=== PATIENT | male | born 1940 | race Caucasian/White ===

== ENCOUNTER → 2018-03-28 09:12 | Outpatient (POV) | payer MEDICARE, SELFPAY | PROVIDERS: Visit Provider Nurse Practitioner Acute Care | DX: Z00.00 Encounter for general adult medical examination without abnormal findings (principal) ==

== ENCOUNTER → 2018-08-08 09:29 | Outpatient (POV) | payer MEDICARE, SELFPAY | PROVIDERS: Visit Provider Nurse Practitioner Acute Care | DX: Z00.00 Encounter for general adult medical examination without abnormal findings (principal) ==

== ENCOUNTER → 2020-01-23 09:31 | Outpatient (POV) | payer MEDICARE, SELFPAY | PROVIDERS: Visit Provider Dermatology | DX: Z00.00 Encounter for general adult medical examination without abnormal findings (principal) ==

== ENCOUNTER → 2020-05-27 08:25 | Outpatient (POV) | payer MEDICARE, SELFPAY | PROVIDERS: Visit Provider Nurse Practitioner Family | DX: Z00.00 Encounter for general adult medical examination without abnormal findings (principal) ==

== ENCOUNTER → 2020-10-04 10:00 | Outpatient (CLI) | payer MEDICARE, SELFPAY | PROVIDERS: Visit Provider Internal Medicine Gastroenterology | DX: Z01.812 Encounter for preprocedural laboratory examination (principal); Z20.822 Contact with and (suspected) exposure to COVID-19; Z12.11 Encounter for screening for malignant neoplasm of colon | CPT/HCPCS: U0003 ==

== ENCOUNTER 2020-10-07 06:56 | Day surgery (SDC) | payer MEDICARE, SELFPAY ==
[2020-10-01 13:32] VITALS: BMI 25.7
[2020-10-07 07:18] VITALS: BP 119/75; PULSE 64; RESP 18; TEMP 36.2; O2SAT 98
--- NOTE | 2020-10-07 07:39 | P.PN_ITS ---
[facility] Anesthesia Checklist - Patient Identification Patient Identification: Arm Band - Structural Data Admitted From: Home Planned Operative Procedure/s: Colonoscopy Consent for Planned Operative Procedure(s) Verified: Yes - NPO Status Verified Time NPO: 00:00 - Additional verifications Anesthesia Reactions: No - Airway Assessment C-Spine Mobility Assessed: Yes TMJ Mobility Assessed: Yes Dentition: Good Dentition - Neurological Assessment Level of Consciousness: Awake Hx Seizures: No Numbness or tingling in extremities: No - Anesthesia Plan Anesthesia Risk discussed: Yes Anesthesia Plan: Verified ASA Class: II Anesthesia Type: MAC [facility] History I have reviewed the patient's past medical history: Yes Medical History: Reports:: Hyperlipidemia, Hypertension Denies:: Cancer, Diabetes Mellitus Type 1, Diabetes Mellitus Type 2, Internal Pacemaker, Lung Disease, MRSA, Seizures *Have you ever received a pneumonia vaccine?: Yes *Have you received a flu vaccine this season?: No Anesthesia experience/problems:: None Other Surgeries: Yes: Hernia Repair, Other (colectomy). No: Pacemaker Amputation: No Fractures: No - *Social History Smoking Status: Never smoker Alcohol Intake: never Substance Use Type: denies use *Occupational Status:: employed Housing: house Household Members: spouse *Travel in the last 8 weeks: None Family Hx:: No significant family history
[2020-10-07 08:06] VITALS: O2SAT 97
--- NOTE | 2020-10-07 08:10 | P.PCN_ITS ---
[facility] Procedure Note Procedure Note:: Colonoscopy Procedure Report: Colonoscopy with cold snare polypectomy Endoscopist: Tacho Arnold II, MD Referring physician: Berry Deng MD Date of Procedure: October 07, 2020 Equipment: Olympus 190 variable stiffness pediatric colonoscope Sedation: MAC sedation Indication: Mr. 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 The patient underwent robotic low anterior resection (Dr. Manjeet Guidry) on January 17, 2018. He had a repeat surveillance colonoscopy in May 2018 and had 5 polyps (tubular adenomas x5) which were removed. The patient does have occasional bowel urgency. He reports no rectal bleeding, abdominal pain, weight loss or change in bowel habits. He reports no family history of colon cancer. Procedure: Prior to the procedure, a history and physical exam was performed, and patient's medications and allergies were reviewed. The risks, benefits and alternatives of the sedation and procedure were discussed with the patient. All questions were answered and informed consent was obtained. The patient was brought to the procedure room. Patient identification and proposed procedure were verified by the physician and the nurse. The patient was placed in a left lateral decubitus position and the scope was passed under direct vision. Throughout the procedure, the patient's blood pressure, pulse, and oxygen saturations were monitored continuously. The colonoscopy was accomplished without difficulty. The patient tolerated the procedure well. Findings: On digital rectal examination there was normal rectal tone. There were no external hemorrhoids. The prostate was 2+, mildly firm but symmetric without nodules. The colonoscope was introduced through the anal canal to the rectum a nd advanced to the cecum. The ileocecal valve and appendiceal orifice were identified. The scope was advanced a short distance into the ileum which appeared grossly normal. The scope was then withdrawn into the colon. There were a total of 3 colon polyps (cecum x2 (2 and 4 mm) and descending x1 (5 mm)) which were all removed via cold snare polypectomy. The remaining cecum, ascending and transverse colon and mucosa were grossly normal. There were scattered diverticuli throughout the descending and remaining sigmoid colon (left colon). There was an end-to-side anastomosis at the rectosigmoid junction. There was no evidence of any anastomotic stricturing with the anastomosis being very widely patent with white anastomotic circumferential line. The rectum itself was normal. Upon retroflexion within the rectum there were grade 1-2 internal hemorrhoids. The preparation was excellent throughout with [place] Preparation Score of 9. The cecal time was 12 minutes. Impression: 1. Diminutive colonic polyps x3 2. Left-sided diverticulosis 3. Prior LAR (low anterior resection) with end to side anastomosis 4. Grade 1-2 internal hemorrhoids Plan: I would encourage bulk fiber supplementation (FiberCon 2 tablets p.o. every morning or twice daily) on a long-term daily maintenance basis. Based upon the patient's personal history of malignant polyp and multiple adenomatous polyps, I would recommend surveillance colonoscopy again in 3 years. This will certainly be based upon good health and willingness to continue surveillance.
[2020-10-07 08:30] VITALS: BP 81/43; PULSE 77; RESP 12; TEMP 36.4; O2SAT 94
[2020-10-07 08:40] VITALS: BP 99/56; PULSE 75; RESP 12; O2SAT 95
[2020-10-07 08:50] VITALS: BP 144/72; PULSE 70; RESP 16; O2SAT 97
[2020-10-07 09:00] VITALS: BP 148/79; PULSE 69; RESP 16; TEMP 36.4; O2SAT 100
== END 2020-10-07 09:06 | disposition home or self-care (01) ==
LOC: OUTP 06:58
PROVIDERS: PCP Family Medicine; Visit Provider Internal Medicine Gastroenterology
PROC: 0DJD8ZZ Inspection of Lower Intestinal Tract, Via Natural or Artificial Opening Endoscopic (ICD-10-PCS; CPT 45378; principal; 2020-10-07 08:00)
DX: Z85.030 Personal history of malignant carcinoid tumor of large intestine (principal); Z90.49 Acquired absence of other specified parts of digestive tract; K63.5 Polyp of colon; K57.30 Diverticulosis of large intestine without perforation or abscess without bleeding; K64.0 First degree hemorrhoids; Z86.010 Personal history of colon polyps; E78.5 Hyperlipidemia, unspecified; I10 Essential (primary) hypertension; Z88.2 Allergy status to sulfonamides; Z79.82 Long term (current) use of aspirin; Z79.899 Other long term (current) drug therapy
CPT/HCPCS: 45385; 88305

== ENCOUNTER → 2021-05-02 09:02 | Outpatient (CLI) | payer MEDICARE, SELFPAY ==
--- NOTE | 2021-05-02 | CA_ITS ---
APPROVED REPORT Exam: Exercise Treadmill Technologist: Yesenia Lewis, Ht: 5 ft 5 in Wt: 158 lbs BSA: 1.79 m2 HR: 81 bpm BP: 166/81 mmHg Medical History Medications: Lisinopril,,,,, Aspirin,,,,, Hydrochlorothiazide,,,,, Probiotic,,,,, Metamucil,,,,, Multivitamin,,,,, Stress Test Details Test: Dilshad HR Resting HR: 85 bpm Max Heart Rate (APMHR): 140.699518 bpm Max HR Achieved: 129 bpm Target HR (85% APMHR): 119.623886 bpm % of APMHR: 92.14 Recovery HR: 114 bpm BP Resting BP: 154/82 mmHg Max BP: 192/91 mmHg Recovery BP: 192.0/91.0 mmHg ECG Clinical Exercise duration: 04:55 min Highest Stage Achieved: Exercise capacity: 7.0 METs Stress ECG Conclusion During Dilshad protocol pt walked for a total of 4:55. No CP noted. No SOA noted. Leg fatigue is noted. Pt did not take BP meds this morning. Test Summary RECOVERY 03:00 0.0 0.0 91 . 172/ 86 . . REST . . . . . . . Standing REST 07:21 0.0 0.0 85 . 154/ 82 . . Stage 1 01:00 10.0 1.7 98 . . . . Stage 1 02:00 10.0 1.7 110 . . . . Stage 1 03:00 10.0 1.7 112 . 172/ 90 . . Stage 2 01:00 12.0 2.5 122 . . . . Stage 2 01:55 12.0 2.5 129 . . . Stop exercise at 04:55 RECOVERY 01:00 0.0 0.0 106 . . . . RECOVERY 02:00 0.0 0.0 92 . 192/ 91 . . RECOVERY 03:00 0.0 0.0 91 . 172/ 86 . . RECOVERY 04:00 0.0 0.0 88 . 171/ 88 . . RECOVERY 04:38 0.0 0.0 91 . 158/ 84 . . Electronically signed by : Berry Farley MD 05/02/2021 20:33:11
== END ==
PROVIDERS: PCP Family Medicine; Visit Provider Family Medicine
DX: R06.00 Dyspnea, unspecified (principal); I10 Essential (primary) hypertension; E78.00 Pure hypercholesterolemia, unspecified; Z82.49 Family history of ischemic heart disease and other diseases of the circulatory system
CPT/HCPCS: 93017

== ENCOUNTER → 2022-02-17 14:46 | Outpatient (POV) | payer MEDICARE, SELFPAY | PROVIDERS: Visit Provider Dermatology | DX: Z00.00 Encounter for general adult medical examination without abnormal findings (principal) ==

== ENCOUNTER → 2022-06-18 11:45 | Outpatient (CLI) | payer MEDICARE, SELFPAY ==
[2022-06-18 14:48] LABS: Basophils # 0.1 K/mm3 (0-0.2); Eosinophils # 0.1 K/mm3 (0.0-0.4); Eosinophils % 0.9 % (0.1-12.0); Hematocrit 49.9 % (42.0-52.0); Hemoglobin 16.6 g/dL (14.1-18.0); Lymphocytes # 1.4 K/mm3 (0.7-4.5); Lymphocytes % 23.4 % (10-50); Mean Corpuscular HGB Conc 33.3 g/dL (31.8-35.4); Mean Corpuscular Hemoglobin 30.5 pg (27.0-31.2); Mean Corpuscular Volume 91.7 fl (80-94); Monocytes # 0.4 K/mm3 (0.1-1.0); Monocytes % 6.6 % (1.7-9.3); Neutrophils # 4.1 K/mm3 (1.8-7.8); Neutrophils % 68.1 % (37.0-80.0); Platelet Count 235 K/mm3 (142-424); Red Blood Count 5.44 M/mm3 (4.60-6.20); White Blood Count 6.1 K/mm3 (4.8-10.8)
[2022-06-18 15:03] LABS: Alanine Aminotransferase 25 U/L (12-78); Albumin Level 4.4 g/dl (3.5-5.0); Albumin/Globulin Ratio 1.6 (1.1-1.8); Alkaline Phosphatase 67 U/L (38-126); Anion Gap 12.4 mEq/L (5-15); Aspartate Amino Transferase 31 U/L (17-59); Blood Urea Nitrogen 22 mg/dl (9-20); Calcium 9.5 mg/dl (8.4-10.2); Carbon Dioxide 31 mmol/L (22.0-30.0); Chloride 102 mmol/L (98-107); Cholesterol 253 mg/dl (140-200); Estimated Glomerular Filt Rate 72 ml/min (>60); GFR (African American) 87 ML/MIN (>60); Globulin 2.7 g/dL (1.3-3.2); Glucose 99 mg/dl (74-100); HDL Cholesterol 36 mg/dl (40-60); Potassium 4.4 mmoL/L (3.5-5.1); Sodium 141 mmol/L (136-145); Total Protein,Serum 7.1 g/dl (6.3-8.2); Triglycerides 150 mg/dl (30-150); VLDL Cholesterol 30 mg/dL (0-40)
[2022-06-18 15:14] LABS: Direct LDL Cholesterol 185.04 mg/dL (100-129)
[2022-06-18 15:35] LABS: Thyroid Stimulating Hormone 1.94 uIU/mL (0.465-4.68)
== END ==
PROVIDERS: PCP Family Medicine; Visit Provider Family Medicine
DX: Z12.5 Encounter for screening for malignant neoplasm of prostate (principal); K59.00 Constipation, unspecified; N39.9 Disorder of urinary system, unspecified; R53.83 Other fatigue; E03.9 Hypothyroidism, unspecified
CPT/HCPCS: 80053; 80061; 84443; 85025; G0103

== ENCOUNTER 2022-12-03 18:17 | Emergency (ER) | payer MEDICARE, SELFPAY ==
[2022-12-03] VITALS (9 sets, daily range): BP systolic 134–154; BP diastolic 67–94; PULSE 68–116; RESP 16–20; TEMP 36.4; O2SAT 95–97; BMI 25.7
--- NOTE | 2022-12-03 18:20 | PC.NURSE ---
Bladder scanned patient; 450mL
--- NOTE | 2022-12-03 19:21 | HMH.EDGENADL ---
Discharge Plan Disposition Patient Disposition: Home, Self-Care Prescriptions Prescriptions: New tamsulosin [Flomax] 0.4 mg capsule 0.4 mg PO DAILY 14 Days Qty: 14 0RF No Action ergocalciferol (vitamin D2) 50 mcg (2,000 unit) capsule 50 mcg PO DAILY ascorbic acid (vitamin C) 500 mg capsule PO hydrochlorothiazide 50 mg tablet 50 mg PO DAILY Qty: 90 3RF cholestyramine (with sugar) [Questran] 4 gram powder in packet 4 g PO DAILY Qty: 60 3RF Rx Instructions: administer w/meal; avoid other meds within 1hr before or 4-6hr after dose tamsulosin [Flomax] 0.4 mg capsule 0.4 mg PO DAILY Qty: 90 3RF amlodipine [Norvasc] 10 mg tablet 10 mg PO DAILY Qty: 90 3RF azithromycin 500 mg tablet 500 mg PO DAILY 3 Days Qty: 3 0RF meclizine 25 mg tablet 25 mg PO TID PRN (Reason: dizziness) Qty: 45 3RF atorvastatin [Lipitor] 20 mg tablet 20 mg PO DAILY Qty: 90 3RF lisinopril 40 mg tablet 40 mg PO DAILY Qty: 90 3RF multivitamin 1 EACH capsule 1 each PO DAILY Referrals Follow up/Referrals: Peyman Oliveira MD [Primary Care Provider] - See instructions Activity Restrictions/Add. Instructions Additional Instructions/Restrictions: Please follow-up with your urologist or your primary care doctor in 1 week for a spontaneous voiding trial. Return with any other concerns. Clinical Impressions Clinical Impression: Acute urinary retention, Prostate cancer Instructions Patient Instructions: DI for Urinary Tract Infection (UTI), DI for Urinary Tract Infection in Children Discharge ED Provider: Angie Gatica General Adult HPI General Chief complaint: Urogenital-Male Stated complaint: trouble urinating Time Seen by Provider: 12/03/22 19:07 Mode of Arrival: Ambulatory Source of Information: Patient Limitations: No Limitations Description of Symptoms (Recalled from ER Triage Doc. by RN): Presents to ED with complaints of inability to urinate that started at 1300 after treatment at . Hx of prostate cancer. Denies hx of urniary retention. States he has pressure in his lower abd. History of Present Illness HPI narrative: Patient is an 82-year-old male presenting with urinary retention. He has a known history of recently diagnosed prostate cancer he is being evaluated and worked up in the [facility] had treatment options discussed on November 03 that was seen in consultation with radiation oncology on November 20 and decided to pursue radiation therapy for his prostate cancer he additionally had gold fiducial placement on and had a PET scan that did not demonstrate any solid organ evidence of metastatic disease. However there was an abnormality in the inferior pole of his kidney for which she was getting a CT scan specifically for renal mass evaluation today at [facility] and had contrast that was placed. Since this procedure he had significant suprapubic pressure and has been unable to urinate. Related Data Home Medications Medication Instructions Recorded Confirmed multivitamin 1 each PO DAILY Supplement 12/20/17 08/14/22 ascorbic acid (vitamin C) 500 mg mg PO 10/13/21 08/14/22 capsule ergocalciferol (vitamin D2) 50 mcg 50 mcg PO DAILY 10/13/21 08/14/22 (2,000 unit) capsule Previous Rx's Medication Instructions Recorded hydrochlorothiazide 50 mg tablet 50 mg PO DAILY #90 tabs 10/13/21 cholestyramine (with sugar) 4 gram 4 g PO DAILY #60 ea 02/13/22 powder for susp in a packet (Questran) atorvastatin 20 mg tablet (Lipitor) 20 mg PO DAILY #90 tabs 06/18/22 tamsulosin 0.4 mg capsule (Flomax) 0.4 mg PO DAILY #90 caps 06/18/22 amlodipine 10 mg tablet (Norvasc) 10 mg PO DAILY #90 tabs 08/14/22 azithromycin 500 mg tablet 500 mg PO DAILY 3 days #3 tabs 08/14/22 meclizine 25 mg tablet 25 mg PO TID PRN dizziness #45 tabs 08/14/22 lisinopril 40 mg tablet 40 mg PO DAILY blood pressure #90 11/16/22 tabs tamsulosin 0.4 mg capsule (Flomax) 0.4 mg PO
[2022-12-03 19:34] LABS: Microscopic, Urine URINE MICROSCOPIC (MICROSCOPIC)
[2022-12-03 19:37] LABS: Appearance,Urine CLEAR (Clear); Bilirubin,Urine Negative (Negative); Blood, Urine TRACE-I (Negative); Color,Urine YELLOW (Yellow); Glucose,Urine (UA) Negative (Negative); Ketones,Urine Negative (Negative); Leukocyte Esterase,Urine Negative (Negative); Nitrate,Urine Negative (Negative); PH,Urine 5.5 (5.0-8.5); Protein,Urine Negative (Negative); Specific Gravity, Urine <= 1.005 (1.005-1.030); Urobilinogen,Urine 0.2 EU/dl (0.2)
[2022-12-03 19:48] LABS: RBC,Urine Occasional #/hpf (0-3); Squamous Epithelial Cell,Urine Occasional #/hpf (0-5)
[2022-12-03 19:51] LABS: Chloride 100 mmol/L (98-107)
[2022-12-03 19:52] LABS: Sodium 137 mmol/L (136-145)
[2022-12-03 19:55] LABS: Anion Gap 12.9 mEq/L (5-15); Blood Urea Nitrogen 22 mg/dl (9-20); Calcium 9.2 mg/dl (8.4-10.2); Carbon Dioxide 27 mmol/L (22.0-30.0); Creatinine Clearance Estimated 58 mL/min (50-200); Estimated Glomerular Filt Rate 72 ml/min (>60); GFR (African American) 87 ML/MIN (>60); Glucose 143 mg/dl (74-100)
[2022-12-03 19:57] LABS: Potassium 2.9 mmoL/L (3.5-5.1)
[2022-12-03 19:58] LABS: Basophils % 0.2 % (0.1-2.0); Eosinophils % 0.4 % (0.1-12.0); Hematocrit 45.8 % (42.0-52.0); Hemoglobin 15.5 g/dL (14.1-18.0); Lymphocytes % 10.4 % (10-50); Mean Corpuscular HGB Conc 33.8 g/dL (31.8-35.4); Mean Corpuscular Hemoglobin 29.6 pg (27.0-31.2); Mean Corpuscular Volume 87.7 fl (80-94); Mean Platelet Volume 7.6 fl (7.4-10.4); Monocytes # 0.6 K/mm3 (0.1-1.0); Monocytes % 6.4 % (1.7-9.3); Neutrophils % 82.7 % (37.0-80.0); Platelet Count 233 K/mm3 (142-424); Red Blood Count 5.22 M/mm3 (4.60-6.20); Red Cell Distribution Width 13.7 % (11.5-17.5); White Blood Count 9.7 K/mm3 (4.8-10.8)
--- NOTE | 2022-12-03 23:58 | PC.NURSE ---
patient catheter meter bag emptied. 300 out. patient resting in bed at this time. alert and oriented. no complaints.
[2022-12-04] VITALS: BP 148/79
[2022-12-04 00:30] VITALS: BP 139/70
[2022-12-04 00:59] VITALS: BP 129/87; PULSE 62; RESP 16; TEMP 36.4; O2SAT 96
== END 2022-12-04 01:10 | disposition home or self-care (01) ==
PROVIDERS: Emergency Provider Student in an Organized Health Care Education/Training Program; PCP Family Medicine
DX: R33.9 Retention of urine, unspecified (principal); C61 Malignant neoplasm of prostate
CPT/HCPCS: 51702; 80048; 81001; 85025; 96360; 96361; 99284

== ENCOUNTER → 2022-12-21 11:11 | Outpatient (CLI) | payer MEDICARE, SELFPAY ==
[2022-12-21 11:53] LABS: D-Dimer 0.69 ug/mL (0.0-0.5)
[2022-12-21 12:44] LABS: Chloride 99 mmol/L (98-107); Sodium 139 mmol/L (136-145)
[2022-12-21 12:45] LABS: Potassium 3.8 mmoL/L (3.5-5.1)
[2022-12-21 12:47] LABS: Alanine Aminotransferase 31 U/L (12-78); Alkaline Phosphatase 82 U/L (38-126); Anion Gap 12.8 mEq/L (5-15); Aspartate Amino Transferase 38 U/L (17-59); Bilirubin,Total 0.9 mg/dl (0.2-1.3); Blood Urea Nitrogen 25 mg/dl (9-20); Carbon Dioxide 31 mmol/L (22.0-30.0); Estimated Glomerular Filt Rate 72 ml/min (>60); GFR (African American) 87 ML/MIN (>60)
[2022-12-21 12:48] LABS: Albumin Level 4.3 g/dl (3.5-5.0); Albumin/Globulin Ratio 1.5 (1.1-1.8); Globulin 2.8 g/dL (1.3-3.2); Glucose 97 mg/dl (74-100); Total Protein,Serum 7.1 g/dl (6.3-8.2)
== END ==
PROVIDERS: PCP Family Medicine; Visit Provider Family Medicine
DX: M79.89 Other specified soft tissue disorders (principal)
CPT/HCPCS: 36415; 80053; 85378

== ENCOUNTER → 2022-12-22 09:44 | Outpatient (CLI) | payer MEDICARE, SELFPAY ==
--- NOTE | 2022-12-22 09:52 | CA_ITS ---
FINAL REPORT CLINICAL HISTORY: Elevated D-Dimer, HTN, prostate cancer starting treatment soon, RLE edema. FINDINGS: Multiple transverse and longitudinal scans were performed of the femoral popliteal deep venous system, with augmentation and compression maneuvers. Normal phasic flow was noted in the visualized deep venous system. No intraluminal increased echogenicity is noted to suggest thrombus. There is normal compression and augmentation of the venous structures. No abnormal venous collaterals are seen. IMPRESSION: No evidence of deep venous thrombosis of the bilateral lower extremities. Reviewed, Interpreted and Dictated by Amirah Pulliam MD Transcribed by Tatiana Toney Authenticated and [facility]
== END ==
PROVIDERS: PCP Family Medicine; Visit Provider Family Medicine
DX: M79.89 Other specified soft tissue disorders (principal)
CPT/HCPCS: 93970

== ENCOUNTER 2023-09-17 10:22 | Outpatient (CLI) | payer MEDICARE, SELFPAY ==
[2023-09-17 18:47] LABS: Alanine Aminotransferase 22 U/L (12-78); Albumin/Globulin Ratio 1.5 (1.1-1.8); Alkaline Phosphatase 68 U/L (38-126); Anion Gap 9.8 mEq/L (5-15); Aspartate Amino Transferase 31 U/L (17-59); Bilirubin,Total 0.8 mg/dl (0.2-1.3); Blood Urea Nitrogen 18 mg/dl (9-20); Calcium 9.6 mg/dl (8.4-10.2); Carbon Dioxide 29 mmol/L (22.0-30.0); Chloride 107 mmol/L (98-107); Estimated Glomerular Filt Rate 81 ml/min (>60); GFR (African American) 98 ML/MIN (>60); Globulin 2.6 g/dL (1.3-3.2); Glucose 107 mg/dl (74-100); Potassium 3.8 mmoL/L (3.5-5.1); Sodium 142 mmol/L (136-145); Total Protein,Serum 6.6 g/dl (6.3-8.2)
[2023-09-17 19:42] LABS: Vitamin B12 802 pg/mL (239-931)
== END 2023-09-17 23:59 | disposition home or self-care (01) ==
LOC: LAB.DROPOF 09-20 10:22
PROVIDERS: PCP Family Medicine; Visit Provider Family Medicine
DX: I10 Essential (primary) hypertension (principal); Z79.899 Other long term (current) drug therapy
CPT/HCPCS: 80053; 82607

== ENCOUNTER 2024-01-17 12:15 | Outpatient (CLI) | payer MEDICARE, SELFPAY ==
[2024-01-17 18:56] LABS: Alanine Aminotransferase 26 U/L (12-78); Albumin Level 4.2 g/dl (3.5-5.0); Albumin/Globulin Ratio 1.3 (1.1-1.8); Alkaline Phosphatase 68 U/L (38-126); Anion Gap 12.4 mEq/L (5-15); Aspartate Amino Transferase 35 U/L (17-59); Bilirubin,Total 0.9 mg/dl (0.2-1.3); Blood Urea Nitrogen 21 mg/dl (9-20); Carbon Dioxide 26 mmol/L (22.0-30.0); Chloride 105 mmol/L (98-107); Estimated Glomerular Filt Rate 81 ml/min (>60); GFR (African American) 98 ML/MIN (>60); Globulin 3.2 g/dL (1.3-3.2); Glucose 96 mg/dl (74-100); Potassium 4.4 mmoL/L (3.5-5.1); Sodium 139 mmol/L (136-145); Total Protein,Serum 7.4 g/dl (6.3-8.2)
== END 2024-01-17 23:59 | disposition home or self-care (01) ==
LOC: LAB.DROPOF 01-18 09:16
PROVIDERS: PCP Family Medicine; Visit Provider Nurse Practitioner
DX: R73.09 Other abnormal glucose (principal); G62.9 Polyneuropathy, unspecified
CPT/HCPCS: 80053; 83036

== ENCOUNTER 2024-01-17 13:44 | Outpatient (CLI) | payer MEDICARE, SELFPAY ==
--- NOTE | 2024-01-17 13:48 | XR_ITS ---
FINAL REPORT CLINICAL HISTORY: right shoulder pain COMPARISON: None FINDINGS: RIGHT SHOULDER Three views demonstrate no acute fracture or dislocation. The visualized joint spaces are normally aligned. There is mild hypertrophic change of the acromioclavicular joint. The soft tissues are unremarkable. IMPRESSION: Mild hypertrophic change of the acromioclavicular joint without acute bony abnormality. Reviewed, Interpreted and Dictated by Oliver Cagle MD Transcribed by Camryn Cintron Authenticated and . [facility]
== END 2024-01-17 23:59 | disposition home or self-care (01) ==
LOC: RAD 13:45
PROVIDERS: PCP Family Medicine; Visit Provider Family Medicine
DX: M25.511 Pain in right shoulder (principal); R73.09 Other abnormal glucose; G62.9 Polyneuropathy, unspecified
CPT/HCPCS: 73030; 80053; 83036